=== PATIENT | female | born 1995 | race Caucasian/White ===

== ENCOUNTER 2021-06-02 21:00 | Outpatient (CLI) | payer OTHER ==
[~2021-06-02 21:00] MED LIST: COLACE 100MG C100 MG PO
== END 2021-06-02 23:09 | disposition left against medical advice (07) ==
LOC: OPSV 21:00 → ER1 21:15 → EDSTATUS 22:40 → OPSV 23:09
DX: O9A.212 Injury, poisoning and certain other consequences of external causes complicating pregnancy, second trimester (principal); S39.91XA Unspecified injury of abdomen, initial encounter; Z3A.20 20 weeks gestation of pregnancy; V49.9XXA Car occupant (driver) (passenger) injured in unspecified traffic accident, initial encounter
CPT/HCPCS: G0463

== ENCOUNTER 2021-09-02 18:28 | Outpatient (CLI) | payer OTHER | END 2021-09-02 20:16 | disposition home or self-care (01) | LOC: GENOP 18:28 | PROVIDERS: Obstetrics & Gynecology | DX: O47.03 False labor before 37 completed weeks of gestation, third trimester (principal); Z3A.33 33 weeks gestation of pregnancy; O99.891 Other specified diseases and conditions complicating pregnancy; N89.8 Other specified noninflammatory disorders of vagina | CPT/HCPCS: 80307; 81001; 82731; 83518; 96360; J7120 ==